=== PATIENT | male | born 2000 | race Caucasian/White ===

== ENCOUNTER 2023-04-14 18:01 | Emergency (ER) | payer OTHER ==
[2023-04-14 18:10] VITALS: BP 133/88
--- NOTE | 2023-04-14 18:10 | ED Physician Documentation ---
PD HPI LOWER EXT INJURY - Stated complaint Stated Complaint: LT KNEE PAIN - Chief complaint Chief Complaint: Ext Problem - History obtained from History obtained from: Patient - Additional information Additional information: 22-year-old gentleman, active duty in the [employer]. He has had to stand more than usual at work lately. Over the last 4 days he has had increasing left knee pain with some swelling. There was no specific injury. It is mild at rest but worse especially when bearing weight. Has not had trouble with that knee before. PD PAST MEDICAL HISTORY - Past Medical History Neuro: Migraines Endocrine/Autoimmune: Other - Past Surgical History Past Surgical History: No - Present Medications Home Medications: Ambulatory Orders Medication Instructions Recorded Confirmed No Known Home Medications 04/14/23 04/14/23 - Allergies Allergies/Adverse Reactions: Allergies Allergy/AdvReac Type Severity Reaction Status Date / Time No Known Drug Allergies Allergy Verified 04/14/23 18:09 - Social History Does the pt smoke?: No Smoking Status: Never smoker Does the pt drink ETOH?: Yes Does the pt have substance abuse?: No - Immunizations Immunizations are current?: Yes - POLST Patient has POLST: No PD ED PE NORMAL - Vitals Vital signs reviewed: Yes - General General: Alert and oriented X 3, No acute distress - Extremities Extremities: Other (There is a small effusion of the left knee with some tenderness in the suprapatellar area. No limited range of motion, warmth, or redness. No ligamentous laxity. Negative grind testing.) - Neuro Neuro: Alert and oriented X 3, Normal speech - Psych Psych: Normal mood, Normal affect Results - Vitals Vitals: Vital Signs - 24 hr 04/14/23 18:05 Temperature 36.6 C Heart Rate 88 Respiratory 18 Rate Blood Pressure 133/88 H O2 Saturation 99 Oxygen O2 Source Room air - Rads (name of study) 4 view x-ray of the left knee is unremarkable Relevant Findings:: Final report received, EMP independent interpretation of test PD Medical Decision Making - ED course ED course: 22-year-old gentleman with a left knee effusion due to increased activity at work and more standing. No evidence of infection. X-ray negative. Counseled to generally rest and follow-up with his PCM. Departure - Departure Disposition: 01 Home, Self Care Clinical Impression: Effusion, left knee Condition: Good Instructions: ED Effusion Knee Comments: As discussed, you have an effusion, fluid in the knee joint. This is probably just from excessive activity/standing. Make sure your PCM is aware of this visit, calling the office tomorrow. Ibuprofen as needed for pain. Generally take it easy. Forms: Activity restrictions Discharge Date/Time: 04/14/23 18:24
--- NOTE | 2023-04-14 18:40 | XRAY Report ---
PROCEDURE: Knee 4 View LT INDICATIONS: knee pain TECHNIQUE: 4 views of the left knee(s) were acquired. COMPARISON: None. FINDINGS: Bones: No fractures or dislocations. No suspicious bony lesions. Soft tissues: No knee joint effusion. No suspicious soft tissue calcifications or masses. IMPRESSION: Normal left knee Reviewed by: Devan Caceres on 04/14/2023 5:38 PM JOSE Approved by: Devan Caceres on 04/14/2023 5:38 PM JOSE Station ID: [id number]
== END 2023-04-14 18:24 | disposition home or self-care (01) ==
LOC: ED 18:01
DX: M25.462 Effusion, left knee (principal)
CPT/HCPCS: 99283